=== PATIENT | female | born 1950 | race Caucasian/White ===

== ENCOUNTER 2017-06-30 16:48 | Emergency (ER) | payer OTHER ==
[~2017-06-30] VITALS: Ht 157.5 cm; Wt 88.9 kg
[2017-06-30] MEDS ORDERED: SYNTHROID150 MCG (18:09)
[2017-06-30] MEDS ORDERED: FLECAINIDE ACET50 MG (18:10)
[2017-06-30] MEDS ORDERED: IRBESARTAN300 MG (18:10)
[2017-06-30] MEDS ORDERED: METOPROLOL SUC100 MG (18:10)
[2017-06-30] MEDS ORDERED: METFORMIN HCL500 MG (18:10)
[2017-06-30] MEDS ORDERED: ZYRTEC10 M3 (18:11)
[2017-06-30] MEDS ORDERED: ATORVASTATIN CA10 MG (18:11)
== END 2017-06-30 22:14 | disposition home or self-care (01) ==
LOC: ER 16:48
DX: J09.X2 Influenza due to identified novel influenza A virus with other respiratory manifestations (principal)